=== PATIENT | female | born 1975 | race Caucasian/White ===

== ENCOUNTER 2020-01-14 14:10 | Emergency (ER) | payer OTHER, SELFPAY ==
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
[2020-01-14 14:17] VITALS: BP 167/94; PULSE 84; RESP 20; TEMP 36.7; O2SAT 100
== END 2020-01-14 14:35 | disposition home or self-care (01) ==
PROVIDERS: Emergency Provider Nurse Practitioner Family; PCP Emergency Medicine
DX: L23.7 Allergic contact dermatitis due to plants, except food (principal); E06.3 Autoimmune thyroiditis; L40.9 Psoriasis, unspecified; Z79.01 Long term (current) use of anticoagulants; I10 Essential (primary) hypertension; Z86.711 Personal history of pulmonary embolism; M32.9 Systemic lupus erythematosus, unspecified
CPT/HCPCS: 99213; G0463